=== PATIENT | male | born 1935 | race Caucasian/White ===

== ENCOUNTER 2016-07-15 10:46 | Emergency (ER) | payer MEDICARE, BC ==
[2016-07-15] MEDS ORDERED: Ondansetron HCl/PF 4 MG/2 ML Vial ONE (11:03)
[2016-07-15] MEDS ORDERED: Ketorolac Tromethamine 30 MG/ML VIAL ONE (11:03)
[2016-07-15] MEDS ORDERED: Benzonatate 100 MG CAP ONE (11:03)
[2016-07-15 11:47] LABS: INR-International Normal Ratio 1.1; PTT 30.7 SEC (22.9-36.1)
[2016-07-15 11:50] LABS: ALT (SGPT) 14 U/L (0-55); AST (SGOT) 15 U/L (5-34); Albumin 3.8 g/dL (3.4-4.8); Alkaline Phosphatase 110 U/L (40-150); Anion Gap 21 mmol/L (10-20); BUN (Urea Nitrogen) 33 mg/dL (8.4-25.7); Bilirubin, Total 1.5 mg/dL (0.2-1.2); CK (CPK) 36 U/L (30-200); Calc. Creatinine Clearance 0 mL/min (70-130); Calcium 9.2 mg/dL (7.8-10.44); Carbon Dioxide 24 mmol/L (23-31); Chloride 102 mmol/L (98-107); Estimated GFR-MDRD 54; Glucose 144 mg/dL (83-110); Potassium 4.2 mmol/L (3.5-5.1); Sodium 143 mmol/L (136-145)
[2016-07-15 11:54] LABS: #Basophils 0.1 thou/uL (0.0-0.2); #Eosinphils 0.1 thou/uL (0.0-0.7); #Lymphocytes 1.3 thou/uL (1.20-3.40); #Monocytes 0.9 thou/uL (0.11-0.59); %Basophils 0.7 % (0.0-1.0); %Eosinophils 1.4 % (0.0-10.0); %Lymphocytes 13.6 % (21.0-51.0); %Monocytes 9.4 % (0.0-10.0); %Neutrophils 74.8 % (42.0-75.0); Hemoglobin 15.7 g/dL (14.0-18.0); Mean Corpuscular HGB CONC 33.2 g/dL (32.0-36.0); Mean Corpuscular Hemoglobin 31.7 pg (27.0-31.0); Mean Corpuscular Volume 95.5 fl (80.0-94.0); Mean Platelet Volume 11.2 fL (7.4-10.4); Platelet Count 124 thou/uL (130-400); RBC Distribution Width 13.5 % (11.5-14.5); Red Blood Cell (RBC) Count 4.95 mill/uL (4.70-6.10); White Blood Cell (WBC) Count 9.4 thou/uL (4.8-10.8)
[2016-07-15 11:55] LABS: Globulin 3.3 g/dL (2.4-3.5); Protein, Total 7.1 g/dL (5.8-8.1)
[2016-07-15 11:56] LABS: CKMB 1.9 ng/mL (0-6.6); Troponin I 0.012 ng/mL (< 0.028)
[2016-07-15] MEDS ORDERED: Aspirin 325 MG TAB ONE (12:20)
[2016-07-15] MEDS ORDERED: Furosemide 40 MG/4 ML VIAL ONE (13:11)
--- NOTE | 2016-07-15 13:22 | ERRECORD ---
[facility] EMERGENCY RECORD HPI SHORTNESS OF BREATH (11:19 LLDO) CHIEF COMPLAINT: Patient presents for evaluation of shortness of breath, Denies chest pain, Patient presents for evaluation of sx started Jul with some cough and some sob. maybe some intermittent fever and some muscle aches. cough not productive, per pt. pt was in hospital in september of last year for pneumonia and in may of last year for chf. 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 adrian last week and was told everything looked good. had "small" heart attack 12 years ago. started on insulin last month. has been on oral meds for his diabetes for some years. pt also has copd and normally just uses hisoxygen at night (2L). last couple of day has been using 24/7. ems got 95% on RA when they arrived butwent up to 100% after neb and on 2L. HISTORIAN: History provided by patient, History provided by patient's spouse, blood sugar 158 on scene per ems. LOCATION: Symptoms are generalized. QUALITY: Symptoms described as tightness. SEVERITY: has right sided headache intermittently past 3 days. TIME COURSE: Gradual onset of symptoms, Symptoms are worsening, are constant. ASSOCIATED WITH: Associated with cough, No associated chest pain, No associated diaphoresis, No associated diarrhea, No associated dyspnea on exertion, Associated with fever, Associated with upper respiratory infection, No associated vomiting, Associated with wheezing, intermittent. EXACERBATED BY: Patient's condition exacerbated by deep breaths, Patient's condition exacerbated by exercise. RELIEVED BY: Patient's condition relieved by nothing. RISK FACTORS: Coronary artery disease risk factors, include known coronary artery disease, include diabetes, include family history, include high cholesterol, include hypertension, Thoracic aortic dissection risk factors, include hypertension, Pulmonary embolism risk factors, not applicable to this patient. ROS CONSTITUTIONAL: Historian reports fatigue, reports fever, reports weakness. (11:26 LLDO) EYES: Negative eye review of systems, Historian denies eye pain, denies eye redness, denies eye discharge. (11:30 LLDO) ENT: Negative ears, nose, throat review of systems, Historian denies otalgia, denies rhinorrhea, denies sinus pain, denies sore throat. (11:30 LLDO) CARDIOVASCULAR: Historian reports dyspnea on exertion. (11:26 LLDO) RESPIRATORY: Historian reports cough, denies sputum, denies stridor, reports wheezing. wheeze is intermittent. (11:26 LLDO) GI: Negative gastrointestinal review of systems, Historian denies &a-1R&a+25V*p+0X*[id number]*c202B*c15G*c2P*p-0X&a-25V&a+1R Name: Edvin Winter I : 1935 M80 MedRec: [id number] AcctNum: [id number] Prepared: Vanita Jul 15, 2016 14:54 by Interface Page 1 of 5 pMD [facility] EMERGENCY RECORD abdominal pain, denies constipation, denies diarrhea, denies nausea, denies vomiting. (11:30 LLDO) MUSCULOSKELETAL: Historian reports myalgias. (11:26 LLDO) NEUROLOGIC: Historian denies confusion, denies dizziness, denies dysphasia, denies focal weakness, denies gait changes, reports headache, denies irritability, denies lethargy, denies mental status changes, denies paralysis, denies paresthesias, denies seizures, denies sensory changes, denies speech changes, denies tics, denies tremors, denies vertigo. (11:26 LLDO) HEMO/LYMPHATIC: Normal hematologic/lymphatic system review, Historian denies abnormal blood clotting, denies gum bleeding, denies petechiae. (11:30 LLDO) ALLERGIC/IMMUNOLOGIC: Normal allergy/immunologic system review, Historian denies eczema, denies environmental allergies, denies food allergies. (11:30 LLDO) PSYCHIATRIC: Negative psychiatric review of systems, Historian denies alcohol abuse, denies anxiety, denies depression, denies drug abuse, denies hallucinations. (11:30 LLDO) NOTES: All systems reviewed, negative except as described above. (11:26 LLDO) PAST MEDICAL HISTORY MEDICAL HISTORY: Past medical history includes cardiac history, myocardial infarction, Past medical history includes history of diabetes, Type II, Past medical history includes history of hypertension, which has been treated, Patient is compliant, Past medical history includes pulmonary disease, chronic obstructive pulmonary disease. (14:15 SCHI) MALE SURGICAL HISTORY: Cardiac stent x1; Stent in left leg; lung collapse, Surgical history of appendectomy, Surgical history of cholecystectomy, laparoscopic. (14:15 SCHI) PSYCHIATRIC HISTORY: No previous psychiatric history, no previous inpatient psychiatric admissions, no previous emergency department psychiatric evaluations. (14:15 SCHI) SOCIAL HISTORY: Patient drinks socially, rarely, Patient denies drug use, Patient is a former tobacco user, smoked cigarettes, Patient quit smoking in the past year. (14:15 SCHI) NOTES: Nursing records reviewed, Agree with nursing records, Medication list reviewed. (11:30 LLDO) KNOWN ALLERGIES No Known Drug Allergies CURRENT MEDICATIONS Lasix: TABLET : Strength - 20 mg : ORAL Patient Dose: 40 mg Oral once a day. (11:06 SCHI) metolazone: TABLET : Strength - 5 mg : ORAL &a-1R&a+25V*p+0X*[id number]*c202B*c15G*c2P*p-0X&a-25V&a+1R Name: Edvin Winter I : 1935 M80 MedRec: [id number] AcctNum: [id number] Prepared: Vanita Jul 15, 2016 14:54 by Interface Page 2 of 5 pMD [facility] EMERGENCY RECORD Patient Dose: every other day. (11:07 SCHI) pantoprazole: TABLET, DELAYED RELEASE (ENTERIC COATED) : Strength - 40 mg : ORAL Patient Dose: once a day. (11:08 SCHI) meloxicam: TABLET : Strength - 7.5 mg : ORAL Patient Dose: once a day. (11:08 SCHI) sertraline: TABLET : Strength - 50 mg : ORAL Patient Dose: once a day. (11:09 SCHI) glipiZIDE: TABLET, EXTENDED RELEASE 24 HR : Strength - 10 mg : ORAL Patient Dose: 2 times a day. (11:09 SCHI) sotalol: TABLET : Strength - 80 mg : ORAL Patient Dose: 2 times a day. (11:10 SCHI) simvastatin: TABLET : Strength - 20 mg : ORAL Patient Dose: once a day. (11:10 SCHI) Lantus Solostar: INSULIN PEN (ML) : Strength - 100 unit/mL (3 mL) : SUBCUTANEOUS Patient Dose: 10 units Subcutaneous once a day. (11:14 SCHI) Forteo: PEN INJECTOR (ML) : Strength - 20 mcg/dose (600 mcg/2.4 mL) : [2.4 mL(s)] : SUBCUTANEOUS Patient Dose: once a day. (11:18 SCHI) VITAL SIGNS VITAL SIGNS: BP: 159/83, Pulse: 61, Resp: 20, O2 sat: 99 on 2L Oxygen, Time: 07/15/2016 10:49. (10:49 SCHI) BP: 142/63, Pulse: 65, Resp: 22, Pain: 0, O2 sat: 97 on Room Air, Time: 07/15/2016 13:42. (13:42 SCHI) PHYSICAL EXAM CONSTITUTIONAL: Vital Signs Reviewed, Patient afebrile, Pulse normal, Blood pressure, BP IS ELEVATED SLIGHTLY, Respiratory rate normal, Abnormal Pulse Oximetry, SEE HPI, Patient appears, uncomfortable, Patient appears, in moderate pain distress, Patient alert and oriented to person, place and time, Nursing notes reviewed. (11:29 LLDO) HEAD: Head exam normal, Head exam included findings of head atraumatic, normocephalic. (11:30 LLDO) EYES: Eye exam normal, Eye exam included findings of eyelids normal to inspection, Pupils equally round and reactive to light, Extraocular muscles intact. (11:30 LLDO) ENT: ENT exam normal, Ear exam normal, Nose exam normal. (11:30 LLDO) NECK: Neck exam normal, Neck exam included findings of normal &a-1R&a+25V*p+0X*s5625G*c202B*c15G*c2P*p-0X&a-25V&a+1R Name: Edvin Winter I : 1935 M80 MedRec: [id number] AcctNum: [id number] Prepared: Vanita Jul 15, 2016 14:54 by Interface Page 3 of 5 pMD [facility] EMERGENCY RECORD range of motion, Trachea midline, no meningeal signs, no tenderness. (11:30 LLDO) RESPIRATORY CHEST: Respiratory exam included findings of no respiratory distress, Wheezing present, Rales present, Chest exam included findings of chest movement symmetrical, Chest expansion equal, no tenderness, WHEEZES MILD AND DIFFUSE AND RALES MODERATE AND DIFFUSE. (11:29 LLDO) CARDIOVASCULAR: Cardiovascular exam included findings of heart rate regular rate and rhythm, Heart sounds with, systolic murmur present, grade 2/6. (11:29 LLDO) ABDOMEN MALE: Abdominal exam normal, Abdominal exam included findings of abdomen nontender, Bowel sounds normal, no peritoneal signs. (11:30 LLDO) BACK: Back exam normal, Back exam included findings of normal inspection, range of motion normal. (11:30 LLDO) UPPER EXTREMITY: Upper extremity exam normal, Upper extremity exam included findings of inspection normal, Range of motion normal. (11:30 LLDO) LOWER EXTREMITY: Lower extremity exam normal, Lower extremity exam included findings of inspection normal, Range of motion normal. (11:30 LLDO) NEURO: Neuro exam normal, Neuro exam findings include patient oriented to person, place and time, Speech normal, Stephenie coma scale 15. (11:30 LLDO) SKIN: Skin exam normal, Skin exam included findings of skin warm, dry, and normal in color, no rash. (11:30 LLDO) PSYCHIATRIC: Psychiatric exam normal, Psychiatric exam included findings of patient oriented to person place and time, Normal affect, Judgment normal. (11:30 LLDO) MEDICATION ADMINISTRATION SUMMARY Drug Name: Lasix injection, Dose Ordered: 80 mg, Route: IV Push, Status: Given, Time: 13:24 07/15/2016, Drug Name: Zofran intravenous, Dose Ordered: 4 mg, Route: IV Push, Status: Given, Time: 13:16 07/15/2016, Drug Name: aspirin oral, Dose Ordered: 325 mg, Route: Oral, Status: Given, Time: 12:22 07/15/2016, Drug Name: Toradol intravenous, Dose Ordered: 15 mg, Route: IV Push, Status: Given, Time: 11:15 07/15/2016, Drug Name: Tessalon Perles, Dose Ordered: 200 mg, Route: Oral, Status: Given, Time: 11:15 07/15/2016, Detailed record available in Medication Service section. DOCTOR NOTES (13:13 LLDO) TEXT: dr. ramon accepted pt for [facility]. PROBLEM LIST No recorded problems &a-1R&a+25V*p+0X*[id number]*c202B*c15G*c2P*p-0X&a-25V&a+1R Name: Edvin Winter Shantelle : 1935 M80 MedRec: [id number] AcctNum: [id number] Prepared: Vanita Jul 15, 2016 14:54 by Interface Page 4 of 5 pMD [facility] EMERGENCY RECORD DIAGNOSIS (13:16 LLDO) FINAL: PRIMARY: CHF, ADDITIONAL: COPD UNSPECIFIED. PRESCRIPTION No recorded prescriptions DISPOSITION PATIENT: Disposition Type: Transfer, Disposition: [facility]. (13:16 LLDO) Disposition Transport: Ambulance, Condition: Fair, Patient left the department. (14:46 LWAL) Patel: LLDO=MD Belinda, Mitchell LWAL=YAKOV Josue, Karely SCHI=YAKOV Romero, Slinda &a-1R&a+25V*p+0X*[id number]*c202B*c15G*c2P*p-0X&a-25V&a+1R Name: Edvin Winter I : 1935 M80 MedRec: [id number] AcctNum: [id number] Prepared: Vanita Jul 15, 2016 14:54 by Interface Page 5 of 5 pMD MTDD
--- NOTE | 2016-07-15 13:28 | PICIS ---
[facility] EMERGENCY RECORD TRIAGE (10:50 SCHI) TRIAGE NOTES: SOB,BODY ACHES, NOT FEELING WELL. (10:50 SCHI) PATIENT: NAME: dEvin Winter I, AGE: 80, GENDER: male, : Silvana 1935, TIME OF GREET: Sun Jul 15, 2016 10:46, PREFERRED LANGUAGE: Sierra Leonean, ETHNICITY: Not or , ECODE BILLING MAP: [facility], SSN: [id number], Zip Code: [address], KG WEIGHT: 77.11 (est.), PHONE: , , , PERSON ID: [id number]. (10:50 SCHI) COMPLAINT: PNEUMONIA. (10:50 SCHI) ADMISSION: URGENCY: 3 Urgent, ADMISSION SOURCE: Home, TRANSPORT: AMBULANCE - [facility], BED: ED -01. (10:50 SCHI) ASSESSMENT: Assessment: ALERT AND ORIENTED X 4, SKIN WARM AND DRY RESP EVEN AND UNLABORED,, Symptoms began SATURDAY. (14:15 SCHI) PAIN: No complaint of pain. (14:15 SCHI) TRIAGE SCREENING: Patient denies suicidal ideation, Patient denies presence of domestic violence. (14:15 SCHI) TREATMENTS IN PROGRESS: Saline Lock, Site: L wrist, Gauge: 20, See EMS Record, Medications Given, DUO NEB GIVEN. (14:15 SCHI) PROVIDERS: TRIAGE NURSE: Grace Romero RN. (10:50 SCHI) VITAL SIGNS: BP 159/83, Pulse 61, Resp 20, O2 Sat 99, on 2L Oxygen, Time 07/15/2016 10:49. (10:49 SCHI) KNOWN ALLERGIES No Known Drug Allergies CURRENT MEDICATIONS Lasix: TABLET : Strength - 20 mg : ORAL Patient Dose: 40 mg Oral once a day. (11:06 SCHI) metolazone: TABLET : Strength - 5 mg : ORAL Patient Dose: every other day. (11:07 SCHI) pantoprazole: TABLET, DELAYED RELEASE (ENTERIC COATED) : Strength - 40 mg : ORAL Patient Dose: once a day. (11:08 SCHI) meloxicam: TABLET : Strength - 7.5 mg : ORAL Patient Dose: once a day. (11:08 SCHI) sertraline: TABLET : Strength - 50 mg : ORAL Patient Dose: once a day. (11:09 SCHI) glipiZIDE: TABLET, EXTENDED RELEASE 24 HR : Strength - 10 mg : ORAL Patient Dose: 2 times a day. (11:09 SCHI) sotalol: TABLET : Strength - 80 mg : ORAL Patient Dose: 2 times a day. (11:10 SCHI) simvastatin: &a-1R&a+25V*p+0X*t7419J*c202B*c15G*c2P*p-0X&a-25V&a+1R Name: Edvin Winter I : 1935 M80 MedRec: [id number] AcctNum: [id number] Prepared: Vanita Jul 15, 2016 15:00 by Interface Page 1 of 12 pMD [facility] EMERGENCY RECORD TABLET : Strength - 20 mg : ORAL Patient Dose: once a day. (11:10 SCHI) Lantus Solostar: INSULIN PEN (ML) : Strength - 100 unit/mL (3 mL) : SUBCUTANEOUS Patient Dose: 10 units Subcutaneous once a day. (11:14 SCHI) Forteo: PEN INJECTOR (ML) : Strength - 20 mcg/dose (600 mcg/2.4 mL) : [2.4 mL(s)] : SUBCUTANEOUS Patient Dose: once a day. (11:18 SCHI) VITAL SIGNS VITAL SIGNS: BP: 159/83, Pulse: 61, Resp: 20, O2 sat: 99 on 2L Oxygen, Time: 07/15/2016 10:49. (10:49 SCHI) BP: 142/63, Pulse: 65, Resp: 22, Pain: 0, O2 sat: 97 on Room Air, Time: 07/15/2016 13:42. (13:42 SCHI) NURSING ASSESSMENT: RESPIRATORY /CHEST (10:50 SCHI) CONSTITUTIONAL: Patient arrives ambulatory, Gait steady, History obtained from patient, Patient appears comfortable, Patient cooperative, Patient alert, Oriented to person, place and time, Skin warm, Skin dry, Skin normal in color, Mucous membranes pink, Mucous membranes moist, Patient is well-groomed, Patient complains of SHORT OF BREATH, NO CHEST PAIN. PAIN: Patient rates pain as 0 out of 10. RESPIRATORY/CHEST: Breath sounds clear, Respiratory assessment findings include respiratory effort easy, Respirations regular, Conversing normally, Neck and chest exam findings include trachea midline, Chest expansion equal, Chest movement symmetrical, Signs of distress, in moderate distress. ENT: Ear assessment findings include ear normal to inspection, Nasal assessment findings include nose normal to inspection, Sinuses normal, Nasal mucosa normal, Mouth and throat assessment findings include mouth inspection normal, Uvula normal, Tonsils normal, Mucous membranes pink, and moist, Able to swallow, Speech normal. NOTES: Emotional support needed and given, Patient tolerated procedure well. SAFETY: Side rails up, Cart/Stretcher in lowest position, Family at bedside, Call light within reach, Hospital ID band on. NURSING PROCEDURE: CRYSTAL GAZER (11:00 SCHI) CRYSTAL GAZER: Patient placed on cardiac surgeon, Patient placed on non-invasive blood pressure monitor, Patient placed on continuous pulse oximetry, Adult/pediatric oxisensor applied. NURSING PROCEDURE: EKG CHART (11:00 SCHI) PATIENT IDENTIFIER: Patient actively involved in identification process, Patient's identity verified by patient stating name, Patient's identity verified by patient stating date. EKG: EKG indicated for complaint of palpitations, 12 lead EKG &a-1R&a+25V*p+0X*v4952J*c202B*c15G*c2P*p-0X&a-25V&a+1R Name: Edvin Winter I : 1935 M80 MedRec: [id number] AcctNum: [id number] Prepared: Vanita Jul 15, 2016 15:00 by Interface Page 2 of 12 pMD [facility] EMERGENCY RECORD performed on the left chest, done by CHARISSA NAGY. NOTES: Emotional support needed and given, Patient tolerated procedure well. SAFETY: Side rails up, Cart/Stretcher in lowest position, Family at bedside, Hospital ID band on. NURSING PROCEDURE: NURSE NOTES NURSES NOTES: Notes: all times are approximate due to care being provided, then documented. (11:00 SCHI) Patient in no apparent distress, Notes: MOVED TO 5 FOR EMERGENT PT TO BE PUT IN 1. (11:44 SCHI) NURSING PROCEDURE: OXYGEN THERAPY (11:00 SCHI) OXYGEN THERAPY: 2L oxygen given, via nasal cannula applied. ORDER DETAILS Order Name: B type Natriuretic Peptide, Status: Active, Time: 10:52 07/15/2016, User: MAGALYS, - Ordered for: MD Trevino Lloyd, - Entered by: MD Trevino Lloyd - Sun Jul 15, 2016 10:52, - Quantity: 1, Order Name: CRYSTAL GAZER ED, Status: Done, Time: 11:02 07/15/2016, User: GERA, - Ordered for: MD Trevino Lloyd, - Entered by: MD Trevino Lloyd - Sun Jul 15, 2016 10:52, - Quantity: 1, Order Name: Cardiac Profile w/CKMB & Troponin - I, Status: Active, Time: 10:52 07/15/2016, User: MAGALYS, - Ordered for: MD Trevino Lloyd, - Entered by: MD Trevino Lloyd - Sun Jul 15, 2016 10:52, - Quantity: 1, Order Name: CBC with Differential, Status: Active, Time: 10:51 07/15/2016, User: MAGALYS, - Ordered for: MD Trevino Lloyd, - Entered by: MD Trevino Lloyd - Sun Jul 15, 2016 10:51, - Quantity: 1, Order Name: CK (CPK), Status: Active, Time: 10:52 07/15/2016, User: MAGALYS, - Ordered for: MD Trevino Lloyd, - Entered by: MD Trevino Lloyd - Sun Jul 15, 2016 10:52, - Quantity: 1, Order Name: Comprehensive Metabolic Panel, Status: Active, Time: 10:51 07/15/2016, User: MAGALYS, - Ordered for: MD Trevino Lloyd, - Entered by: MD Trevino Lloyd - Sun Jul 15, 2016 10:51, - Quantity: 1, Order Name: Culture, Blood, Status: Active, Time: 10:51 07/15/2016, User: MAGALYS, - Ordered for: MD Trevino Lloyd, &a-1R&a+25V*p+0X*g4564F*c202B*c15G*c2P*p-0X&a-25V&a+1R Name: Edvin Winter I : 1935 M80 MedRec: [id number] AcctNum: [id number] Prepared: Vanita Jul 15, 2016 15:00 by Interface Page 3 of 12 D [facility] EMERGENCY RECORD - Entered by: MD Trevino Lloyd - Sun Jul 15, 2016 10:51, - Quantity: 1, Order Name: Culture, Urine, Status: Active, Time: 10:51 07/15/2016, User: MAGALYS, - Ordered for: MD Trevino Lloyd, - Entered by: MD Trevino Lloyd - Sun Jul 15, 2016 10:51, - Quantity: 1, Order Name: EKG 12 Lead in Emergency Room, Status: Active, Time: 10:52 07/15/2016, User: MAGALYS, - Ordered for: MD Trevino Lloyd, - Entered by: MD Trevino Lloyd - Sun Jul 15, 2016 10:52, - Quantity: 1, Order Name: ERRT Oxygen Usage ER, Status: Active, Time: 10:52 07/15/2016, User: MAGALYS, - Ordered for: MD Trevino Lloyd, - Entered by: MD Trevino Lloyd - Sun Jul 15, 2016 10:52, - Quantity: 1, Order Name: ERRT Pulse Oximeter ER, Status: Active, Time: 10:52 07/15/2016, User: MAGALYS, - Ordered for: MD Trevino Lloyd, - Entered by: MD Trevino Lloyd - Sun Jul 15, 2016 10:52, - Quantity: 1, Order Name: Protime with INR, Status: Active, Time: 10:51 07/15/2016, User: MAGALYS, - Ordered for: MD Trevino Lloyd, - Entered by: MD Trevino Lloyd - Sun Jul 15, 2016 10:51, - Quantity: 1, Order Name: PTT, Status: Active, Time: 10:51 07/15/2016, User: MAGALYS, - Ordered for: MD Trevino Lloyd, - Entered by: MD Trevino Lloyd - Sun Jul 15, 2016 10:51, - Quantity: 1, Order Name: SALINE LOCK, Status: Done, Time: 11:02 07/15/2016, User: GERA, - Ordered for: MD Trevino Lloyd, - Entered by: MD Trevino Lloyd - Sun Jul 15, 2016 10:52, - Quantity: 1, Order Name: Urinalysis w/ Rflx Microscopic, Status: Active, Time: 10:51 07/15/2016, User: MAGALYS, - Ordered for: MD Trevino Lloyd, - Entered by: MD Trevino Lloyd - Sun Jul 15, 2016 10:51, - Quantity: 1, Order Name: XR Chest 1 View Portable, Status: Active, Time: 10:52 07/15/2016, User: MAGALYS, - Ordered for: MD Trevino Lloyd, - Entered by: MD Trevino Lloyd - Sun Jul 15, 2016 10:52, - Quantity: 1. MEDICATION ADMINISTRATION SUMMARY Drug Name: Lasix injection, Dose Ordered: 80 mg, Route: IV Push, &a-1R&a+25V*p+0X*b3640I*c202B*c15G*c2P*p-0X&a-25V&a+1R Name: Edvin Wintre I : 1935 M80 MedRec: [id number] AcctNum: [id number] Prepared: Vanita Jul 15, 2016 15:00 by Interface Page 4 of 12 pMD [facility] EMERGENCY RECORD Status: Given, Time: 13:24 07/15/2016, Drug Name: Zofran intravenous, Dose Ordered: 4 mg, Route: IV Push, Status: Given, Time: 13:16 07/15/2016, Drug Name: aspirin oral, Dose Ordered: 325 mg, Route: Oral, Status: Given, Time: 12:22 07/15/2016, Drug Name: Toradol intravenous, Dose Ordered: 15 mg, Route: IV Push, Status: Given, Time: 11:15 07/15/2016, Drug Name: Graciela Holden, Dose Ordered: 200 mg, Route: Oral, Status: Given, Time: 11:15 07/15/2016, Detailed record available in Medication Service section. MEDICATION SERVICE aspirin oral: Order: aspirin oral (aspirin) - Dose: 325 mg : Oral POTENTIAL CONTRAINDICATED INTERACTION: Toradol intravenous (ketorolac tromethamine) - Benefits outweigh risks, Patient no longer on medication Schedule: Now Ordered by: Mitchell Trevino MD Entered by: MD Vanita Bingham Jul 15, 2016 11:38 , Acknowledged by: YAKOV José Jul 15, 2016 12:19 Documented as given by: YAKOV José Jul 15, 2016 12:22 Patient, Medication, Dose, Route and Time verified prior to administration. Site: Medication administered P.O., Correct patient, time, route, dose and medication confirmed prior to administration, Patient advised of actions and side-effects prior to administration, Allergies confirmed and medications reviewed prior to administration. Lasix injection: Order: Lasix injection (furosemide) - Dose: 80 mg : IV Push Schedule: Now Ordered by: Mitchell Trevino MD Entered by: MD Vanita Bingham Jul 15, 2016 13:00 , Acknowledged by: YAKOV José Jul 15, 2016 13:10 Documented as given by: YAKOV José Jul 15, 2016 13:24 Patient, Medication, Dose, Route and Time verified prior to administration. IV SITE #1 IVP, subsequent different medication, Catheter placement confirmed via flush prior to administration, IV site without signs or symptoms of infiltration during medication administration, No swelling during administration, No drainage during administration, IV flushed after administration, Correct patient, time, route, dose and medication confirmed prior to administration, Patient advised of actions and side-effects prior to administration, Allergies confirmed and medications reviewed prior to administration. Tessalon Perles: Order: Tessalon Perles (benzonatate) - Dose: 200 mg : Oral Schedule: Now Ordered by: Mitchell Trevino MD Entered by: MD Vanita Bingham Jul 15, 2016 10:59 , &a-1R&a+25V*p+0X*q8792X*c202B*c15G*c2P*p-0X&a-25V&a+1R Name: Edvin Winter I : 1935 M80 MedRec: [id number] AcctNum: [id number] Prepared: Vanita Jul 15, 2016 15:00 by Interface Page 5 of 12 pMD [facility] EMERGENCY RECORD Acknowledged by: YAKOV José Jul 15, 2016 11:02 Documented as given by: YAKOV José Jul 15, 2016 11:15 Patient, Medication, Dose, Route and Time verified prior to administration. Site: Medication administered P.O., Correct patient, time, route, dose and medication confirmed prior to administration, Patient advised of actions and side-effects prior to administration, Allergies confirmed and medications reviewed prior to administration. Toradol intravenous: Order: Toradol intravenous (ketorolac tromethamine) - Dose: 15 mg : IV Push Schedule: Now Ordered by: Mitchell Trevino MD Entered by: MD Vanita Bingham Jul 15, 2016 10:59 , Acknowledged by: YAKOV José Jul 15, 2016 11:02 Documented as given by: YAKOV José Jul 15, 2016 11:15 Patient, Medication, Dose, Route and Time verified prior to administration. IV SITE #1 IVP, initial medication, Catheter placement confirmed via flush prior to administration, IV site without signs or symptoms of infiltration during medication administration, No swelling during administration, No drainage during administration, IV flushed after administration, Correct patient, time, route, dose and medication confirmed prior to administration, Patient advised of actions and side-effects prior to administration, Allergies confirmed and medications reviewed prior to administration. Zofran intravenous: Order: Zofran intravenous (ondansetron HCl) - Dose: 4 mg : IV Push Schedule: Now Ordered by: Mitchell Trevino MD Entered by: MD Vanita Bingham Jul 15, 2016 10:59 , Acknowledged by: YAKOV José Jul 15, 2016 11:03 Documented as given by: YAKOV José Jul 15, 2016 13:16 Patient, Medication, Dose, Route and Time verified prior to administration. IV SITE #1 IVP, subsequent different medication, Slowly, Catheter placement confirmed via flush prior to administration, IV site without signs or symptoms of infiltration during medication administration, No swelling during administration, No drainage during administration, IV flushed after administration, Correct patient, time, route, dose and medication confirmed prior to administration, Patient advised of actions and side-effects prior to administration, Allergies confirmed and medications reviewed prior to administration. HPI SHORTNESS OF BREATH (11:19 LLDO) CHIEF COMPLAINT: Patient presents for evaluation of shortness of breath, Denies chest pain, Patient presents for evaluation of sx started 12 meghan with some cough and some sob. maybe some intermittent fever and some muscle aches. cough not productive, per pt. pt was in hospital in september of last year for pneumonia and in may of last year for chf. 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 had "small" heart attack 12 years ago. started on insulin last month. has been on oral meds for his diabetes for some years. pt also has copd and normally just uses hisoxygen at night (2L). last couple of day has been using 24/7. ems got 95% on RA when they arrived butwent up to 100% after neb and on 2L. HISTORIAN: History provided by patient, History provided by patient's spouse, blood sugar 158 on scene per ems. LOCATION: Symptoms are generalized. QUALITY: Symptoms described as tightness. SEVERITY: has right sided headache intermittently past 3 days. TIME COURSE: Gradual onset of symptoms, Symptoms are worsening, are constant. ASSOCIATED WITH: Associated with cough, No associated chest pain, No associated diaphoresis, No associated diarrhea, No associated dyspnea on exertion, Associated with fever, Associated with upper respiratory infection, No associated vomiting, Associated with wheezing, intermittent. EXACERBATED BY: Patient's condition exacerbated by deep breaths, Patient's condition exacerbated by exercise. RELIEVED BY: Patient's condition relieved by nothing. RISK FACTORS: Coronary artery disease risk factors, include known coronary artery disease, include diabetes, include family history, include high cholesterol, include hypertension, Thoracic aortic dissection risk factors, include hypertension, Pulmonary embolism risk factors, not applicable to this patient. ROS CONSTITUTIONAL: Historian reports fatigue, reports fever, reports weakness. (11:26 LLDO) EYES: Negative eye review of systems, Historian denies eye pain, denies eye redness, denies eye discharge. (11:30 LLDO) ENT: Negative ears, nose, throat review of systems, Historian denies otalgia, denies rhinorrhea, denies sinus pain, denies sore throat. (11:30 LLDO) CARDIOVASCULAR: Historian reports dyspnea on exertion. (11:26 LLDO) RESPIRATORY: Historian reports cough, denies sputum, denies stridor, reports wheezing. wheeze is intermittent. (11:26 LLDO) GI: Negative gastrointestinal review of systems, Historian denies abdominal pain, denies constipation, denies diarrhea, denies nausea, denies vomiting. (11:30 LLDO) MUSCULOSKELETAL: Historian reports myalgias. (11:26 LLDO) NEUROLOGIC: Historian denies confusion, denies dizziness, denies dysphasia, denies focal weakness, denies gait changes, reports headache, denies irritability, denies lethargy, denies mental &a-1R&a+25V*p+0X*z2938Q*c202B*c15G*c2P*p-0X&a-25V&a+1R Name: Edvin Winter I : 1935 M80 MedRec: [id number] AcctNum: [id number] Prepared: Vanita Jul 15, 2016 15:00 by Interface Page 7 of 12 pMD [facility] EMERGENCY RECORD status changes, denies paralysis, denies paresthesias, denies seizures, denies sensory changes, denies speech changes, denies tics, denies tremors, denies vertigo. (11:26 LLDO) HEMO/LYMPHATIC: Normal hematologic/lymphatic system review, Historian denies abnormal blood clotting, denies gum bleeding, denies petechiae. (11:30 LLDO) ALLERGIC/IMMUNOLOGIC: Normal allergy/immunologic system review, Historian denies eczema, denies environmental allergies, denies food allergies. (11:30 LLDO) PSYCHIATRIC: Negative psychiatric review of systems, Historian denies alcohol abuse, denies anxiety, denies depression, denies drug abuse, denies hallucinations. (11:30 LLDO) NOTES: All systems reviewed, negative except as described above. (11:26 LLDO) PAST MEDICAL HISTORY MEDICAL HISTORY: Past medical history includes cardiac history, myocardial infarction, Past medical history includes history of diabetes, Type II, Past medical history includes history of hypertension, which has been treated, Patient is compliant, Past medical history includes pulmonary disease, chronic obstructive pulmonary disease. (14:15 SCHI) MALE SURGICAL HISTORY: Cardiac stent x1; Stent in left leg; lung collapse, Surgical history of appendectomy, Surgical history of cholecystectomy, laparoscopic. (14:15 SCHI) PSYCHIATRIC HISTORY: No previous psychiatric history, no previous inpatient psychiatric admissions, no previous emergency department psychiatric evaluations. (14:15 SCHI) SOCIAL HISTORY: Patient drinks socially, rarely, Patient denies drug use, Patient is a former tobacco user, smoked cigarettes, Patient quit smoking in the past year. (14:15 SCHI) NOTES: Nursing records reviewed, Agree with nursing records, Medication list reviewed. (11:30 LLDO) PHYSICAL EXAM CONSTITUTIONAL: Vital Signs Reviewed, Patient afebrile, Pulse normal, Blood pressure, BP IS ELEVATED SLIGHTLY, Respiratory rate normal, Abnormal Pulse Oximetry, SEE HPI, Patient appears, uncomfortable, Patient appears, in moderate pain distress, Patient alert and oriented to person, place and time, Nursing notes reviewed. (11:29 LLDO) HEAD: Head exam normal, Head exam included findings of head atraumatic, normocephalic. (11:30 LLDO) EYES: Eye exam normal, Eye exam included findings of eyelids normal to inspection, Pupils equally round and reactive to light, Extraocular muscles intact. (11:30 LLDO) ENT: ENT exam normal, Ear exam normal, Nose exam normal. (11:30 LLDO) NECK: Neck exam normal, Neck exam included findings of normal &a-1R&a+25V*p+0X*w0071K*c202B*c15G*c2P*p-0X&a-25V&a+1R Name: Edvin Winter I : 1935 M80 MedRec: [id number] AcctNum: [id number] Prepared: Vanita Jul 15, 2016 15:00 by Interface Page 8 of 12 pMD [facility] EMERGENCY RECORD range of motion, Trachea midline, no meningeal signs, no tenderness. (11:30 LLDO) RESPIRATORY CHEST: Respiratory exam included findings of no respiratory distress, Wheezing present, Rales present, Chest exam included findings of chest movement symmetrical, Chest expansion equal, no tenderness, WHEEZES MILD AND DIFFUSE AND RALES MODERATE AND DIFFUSE. (11:29 LLDO) CARDIOVASCULAR: Cardiovascular exam included findings of heart rate regular rate and rhythm, Heart sounds with, systolic murmur present, grade 2/6. (11:29 LLDO) ABDOMEN MALE: Abdominal exam normal, Abdominal exam included findings of abdomen nontender, Bowel sounds normal, no peritoneal signs. (11:30 LLDO) BACK: Back exam normal, Back exam included findings of normal inspection, range of motion normal. (11:30 LLDO) UPPER EXTREMITY: Upper extremity exam normal, Upper extremity exam included findings of inspection normal, Range of motion normal. (11:30 LLDO) LOWER EXTREMITY: Lower extremity exam normal, Lower extremity exam included findings of inspection normal, Range of motion normal. (11:30 LLDO) NEURO: Neuro exam normal, Neuro exam findings include patient oriented to person, place and time, Speech normal, [place] coma scale 15. (11:30 LLDO) SKIN: Skin exam normal, Skin exam included findings of skin warm, dry, and normal in color, no rash. (11:30 LLDO) PSYCHIATRIC: Psychiatric exam normal, Psychiatric exam included findings of patient oriented to person place and time, Normal affect, Judgment normal. (11:30 LLDO) EVENTS TRANSFER: Triage to Emergency Main ED -01. (Vanita Jul 15, 2016 10:50 SCHI) Emergency Main ED -01 to -05. (11:45 LLDO) Removed from Emergency Main ED -05. (14:46 LWAL) DOCTOR NOTES (13:13 LLDO) TEXT: dr. ramon accepted pt for [facility]. PROBLEM LIST No recorded problems DIAGNOSIS (13:16 LLDO) FINAL: PRIMARY: CHF, ADDITIONAL: COPD UNSPECIFIED. DISPOSITION PATIENT: Disposition Type: Transfer, Disposition: [facility]. (13:16 LLDO) Disposition Transport: Ambulance, Condition: Fair, Patient left the &a-1R&a+25V*p+0X*b7318U*c202B*c15G*c2P*p-0X&a-25V&a+1R Name: Edvin Winter I : 1935 M80 MedRec: [id number] AcctNum: [id number] Prepared: Vanita Jul 15, 2016 15:00 by Interface Page 9 of 12 pMD [facility] EMERGENCY RECORD department. (14:46 LWAL) PRESCRIPTION No recorded prescriptions IMAGING (14:18 SCHI) VITAL SIGNS: Image captured from scanner. *EKG: Image captured from scanner. ADMIN (13:17 LLDO) DIGITAL SIGNATURE: MD Belinda, Mitchell. MD Belinda, Mitchell. MD Belinda, Mitchell. MD Belinda, Mitchell. MD Belinda, Mitchell. MD Belinda, Lloyd. Belinda MD, Lloyd. Belinda MD, Mitchell. MD Belinda, Mitchell. RESULTS LABORATORY: Cardiac Profile w/CKMB & TropI Collection DT: [place] Jul 15, 2016 11:25, CKMB 1.9 ng/mL, Range (0-6.6), Troponin I 0.012 ng/mL, Range (< 0.028), Reference Range , 0.00 - 0.028 ng/mL Negative 0.029 - 0.29 ng/mL , Indeterminate Greater or Equal to 0.3 ng/mL Strongly suggests IA , . (13:27 LWAL) B type Natriuretic Peptide Collection DT: [place] Jul 15, 2016 11:25, *B type Natriuretic Peptide 307.8 - H pg/mL, Range (0-100). (13:27 LWAL) PTT Collection DT: [place] Jul 15, 2016 11:25, See comment below , Anticoagulant? NONE Medical Necessity SUSPECT COAGULOPATHY , PTT 30.7 SEC, Range (22.9-36.1). (13:27 LWAL) Protime with INR Collection DT: [place] Jul 15, 2016 11:25, See comment below , Anticoagulant? NONE Medical Necessity SUSPECT COAGULOPATHY , Prothrombin Time 14.0 SEC, Range (12.0-14.7), INR-International Normal Ratio 1.1 , ATTENTION: READ CAREFULLY , The, recommended therapeutic ranges for oral anticoagulant treatments are: , , Low Intensity: 1.5 - 2.0 &a-1R&a+25V*p+0X*q8342G*c202B*c15G*c2P*p-0X&a-25V&a+1R Name: Edvin Winter I : 1935 M80 MedRec: [id number] AcctNum: [id number] Prepared: Vanita Jul 15, 2016 15:00 by Interface Page 10 of 12 pMD [facility] EMERGENCY RECORD Moderate Intensity: 2.0, - 3.0 High Intensity (1): 2.5 - 3.5 High, Intensity (2): 3.0 - 4.0 CRITICAL: >, 4.0 . (13:27 LWAL) CBC with Differential Collection DT: [place] Jul 15, 2016 11:25, White Blood Cell (WBC) Count 9.4 thou/uL, Range (4.8-10.8), Red Blood Cell (RBC) Count 4.95 mill/uL, Range (4.70-6.10), Hemoglobin 15.7 g/dL, Range (14.0-18.0), Hematocrit 47.3 %, Range (42.0-52.0), *Mean Corpuscular Volume 95.5 - H fl, Range (80.0-94.0), *Mean Corpuscular Hemoglobin 31.7 - H pg, Range (27.0-31.0), Mean Corpuscular HGB CONC 33.2 g/dL, Range (32.0-36.0), RBC Distribution Width 13.5 %, Range (11.5-14.5), *Platelet Count 124 - L thou/uL, Range (130-400), *Mean Platelet Volume 11.2 - H fL, Range (7.4-10.4), %Neutrophils 74.8 %, Range (42.0-75.0), *%Lymphocytes 13.6 - L %, Range (21.0-51.0), %Monocytes 9.4 %, Range (0.0-10.0), %Eosinophils 1.4 %, Range (0.0-10.0), %Basophils 0.7 %, Range (0.0-1.0), *#Neutrophils 7.0 - H thou/uL, Range (1.40-6.50), #Lymphocytes 1.3 thou/uL, Range (1.20-3.40), *#Monocytes 0.9 - H thou/uL, Range (0.11-0.59), #Eosinphils 0.1 thou/uL, Range (0.0-0.7), #Basophils 0.1 thou/uL, Range (0.0-0.2). (13:27 LWAL) CK (CPK) Collection DT: [place] Jul 15, 2016 11:25, CK (CPK) 36 U/L, Range (30-200). (13:27 LWAL) Comprehensive Metabolic Panel Collection DT: [place] Jul 15, 2016 11:25, Sodium 143 mmol/L, Range (136-145), Potassium 4.2 mmol/L, Range (3.5-5.1), Chloride 102 mmol/L, Range (98-107), Carbon Dioxide 24 mmol/L, Range (23-31), *Anion Gap 21 - H mmol/L, Range (10-20), *BUN (Urea Nitrogen) 33 - H mg/dL, Range (8.4-25.7), Creatinine 1.29 mg/dL, Range (0.7-1.3), Estimated GFR-MDRD 54 , Reference Range for Estimated GFR: Greater than 90, mL/min/1.73 m2 NOTE: The MDRD equation has not been validated for use, with the elderly (over 70 years of age), women, patients with, serious comorbid condition or persons with extremes of body size, muscle, mass, or nutritional status. , *Glucose 144 - H mg/dL, Range (83-110), Calcium 9.2 mg/dL, Range (7.8-10.44), *Bilirubin, Total 1.5 - H mg/dL, Range (0.2-1.2), &a-1R&a+25V*p+0X*q0892V*c202B*c15G*c2P*p-0X&a-25V&a+1R Name: Edvin Winter I : 1935 M80 MedRec: [id number] AcctNum: [id number] Prepared: [place] Jul 15, 2016 15:00 by Interface Page 11 of 12 pMD [facility] EMERGENCY RECORD Protein, Total 7.1 g/dL, Range (5.8-8.1), NOTE: Plasma values are generally 0.3 to 0.5 g/dL higher than serum values, due to the presence of fibrinogen. , Albumin 3.8 g/dL, Range (3.4-4.8), Globulin 3.3 g/dL, Range (2.4-3.5), Alb/Glob Ratio 1.2 g/dL, Range (1.2-2.2), Alkaline Phosphatase 110 U/L, Range (40-150), AST (SGOT) 15 U/L, Range (5-34), ALT (SGPT) 14 U/L, Range (0-55). (13:27 LWAL) Urine Microscopic Collection DT: [place] Jul 15, 2016 14:27, *RBC/HPF 7-10 - H HPF, Range (0-3), WBC/HPF 0-3 HPF, Range (0-3), *Squamous Epithelial 7-10 - H HPF, Range (0-3), Transitional Epithelial 0-3 HPF, Range (0-3), Renal Epithelial 0-3 HPF, Range (0-3), Bacteria/HPF None Seen HPF, Range (None Seen). (14:35 SCHI) Urinalysis w/ Rflx Microscopic Collection DT: [place] Jul 15, 2016 14:27, Color Yellow , Range (Yellow), Clarity Clear , Range (Clear), Specific [place], Urine 1.015 , Range (1.005-1.030), pH, Urine 5.5 , Range (5.0-9.0), Leukocyte Negative , Range (Negative), Nitrite Negative , Range (Negative), Protein, Urine (Dipstick) Negative mg/dL, Range (Neg-Trace), Glucose, Urine (Dipstick) Negative mg/dL, Range (Negative), *Ketone, Urine Trace - H mg/dL, Range (Negative), Urobilinogen 1.0 mg/dL, Range (0.2-1.0), Bilirubin Negative , Range (Negative), *Blood, Urine Trace - H , Range (Negative). (14:35 SCHI) Patel: MAGALYS=MD Belinda, Mitchell LWAL=YAKOV Josue, Karely SCHI=YAKOV Romero, Grace &a-1R&a+25V*p+0X*u9455N*c202B*c15G*c2P*p-0X&a-25V&a+1R Name: Edvin Winter I : 1935 M80 MedRec: [id number] AcctNum: [id number] Prepared: [place] Jul 15, 2016 15:00 by Interface Page 12 of 12 pMD MTDD
--- NOTE | 2016-07-15 13:54 | RAD ---
PORTABLE CHEST: Date: 07/15/16 PROVIDED CLINICAL HISTORY: Dyspnea. FINDINGS: Comparison with 10/05/15. The cardiac silhouette appears enlarged, which may be at least partially on the basis of portable te chnique. There is prominence of the pulmonary interstitium and pulmonary vasculature. No focal conso lidation, pleural fluid, or pneumothorax apparent. IMPRESSION: Cardiomegaly and findings suggesting congestive failure. Follow-up recommended. POS: NELA
[2016-07-15 14:24] LABS: Bilirubin Negative (Negative); Blood, Urine Trace (Negative); Clarity Clear (Clear); Glucose, Urine (Dipstick) Negative (Negative); Leukocyte Negative (Negative); Nitrite Negative (Negative); Protein, Urine (Dipstick) Negative (Neg-Trace); Specific Gravity, Urine 1.015 (1.005-1.030); pH, Urine 5.5 (5.0-9.0)
[2016-07-15 14:28] LABS: Bacteria/HPF None Seen HPF (None Seen); Renal Epithelial 0-3 HPF (0-3); Transitional Epithelial 0-3 HPF (0-3); WBC/HPF 0-3 HPF (0-3)
== END 2016-07-15 14:39 | disposition short-term general hospital (02) ==
LOC: MADERS 10:46
DX: I11.0 Hypertensive heart disease with heart failure (principal); I50.9 Heart failure, unspecified; J44.9 Chronic obstructive pulmonary disease, unspecified; I25.2 Old myocardial infarction; E11.9 Type 2 diabetes mellitus without complications; Z87.891 Personal history of nicotine dependence; Z79.899 Other long term (current) drug therapy; Z79.4 Long term (current) use of insulin; Z79.84 Long term (current) use of oral hypoglycemic drugs
CPT/HCPCS: 36415; 71010; 80053; 81003; 81015; 82550; 82553; 83880; 84484; 85025; 85610; 85730; 87040; 87086; 87149; 93005; 94760; 96374; 96375; J1885; J1940; J2405